=== PATIENT | female | born 1950 | race Caucasian/White ===

== ENCOUNTER 2024-06-08 09:55 | Emergency (ER) | payer MEDICARE ==
[~2024-06-08] VITALS: Ht 172.7 cm; Wt 56.7 kg
[~2024-06-08 09:55] MED LIST: CYMBALTA PO; METOPROLOL PO; SYNTHROID PO
[2024-06-08 09:59] VITALS: O2SAT 98
[2024-06-08 10:59] LABS: BASOPHILS # (AUTO) 0.2 K/UL (0.0-0.2); BASOPHILS % (AUTO) 4.4 % (0.0-2.0); EOSINOPHILS # (AUTO) 0.1 K/uL (0.0-0.7); EOSINOPHILS % (AUTO) 2.7 % (0.0-7.0); HEMATOCRIT 37.3 % (31.2-41.9); HEMOGLOBIN 12.3 g/dL (10.9-14.3); LYMPHOCYTES # (AUTO) 1.3 K/uL (0.8-4.8); MEAN CORPUSCULAR HEMOGLOBIN 31.2 uug (24.7-32.8); MEAN CORPUSCULAR HGB CONC 33 g/dL (32.3-35.6); MEAN CORPUSCULAR VOLUME 94.4 fL (75.5-95.3); MONOCYTES # (AUTO) 0.4 K/uL (0.1-1.30); MONOCYTES % (AUTO) 7.5 % (0.0-11.0); NEUTROPHILS # (AUTO) 3.1 K/uL (1.8-8.9); NEUTROPHILS % (AUTO) 60.4 % (38.5-71.5); PLATELET COUNT (AUTO) 206 K/uL (179-408); RED BLOOD CELL COUNT(AUTO) 3.95 MIL/uL (3.63-4.92); RED CELL DISTRIBUTION WIDTH 13.2 % (12.3-17.7); WHITE BLOOD COUNT (AUTO) 5.1 K/uL (3.8-11.8)
[2024-06-08 11:11] LABS: DIFFERENTIAL COMMENT 1
[2024-06-08 11:13] LABS: CALCIUM 8.9 mg/dL (8.5-10.1); CARBON DIOXIDE 28 mmol/L (21-32); CHLORIDE 105 mmol/L (98-107); CREATININE 1.1 mg/dL (0.6-1.3); GLUCOSE 100 mg/dL (74-106); POTASSIUM 5.6 mmol/L (3.5-5.1); SODIUM SERUM 141 mmol/L (136-145); UREA NITROGEN, BLOOD 40 mg/dL (7-18)
[2024-06-08 11:22] LABS: ALANINE AMINOTRANSFERASE 24 U/L (14-59); ALBUMIN 3.9 g/dL (3.4-5.0); ALKALINE PHOSPHATASE 53 U/L (50-136); ASPARTATE AMINOTRANSFERASE 34 U/L (15-37); BILIRUBIN,DIRECT 0.2 mg/dL (0.0-0.2); BILIRUBIN,TOTAL 0.6 mg/dL (0.2-1.0); TOTAL PROTEIN, SERUM 7.1 g/dL (6.4-8.2)
[2024-06-08] MEDS ORDERED: OXYC-128 PO (11:37)
== END 2024-06-08 11:48 | disposition home or self-care (01) ==
LOC: ER 09:55
DX: M54.17 Radiculopathy, lumbosacral region (principal); I10 Essential (primary) hypertension; Z79.891 Long term (current) use of opiate analgesic; Z79.899 Other long term (current) drug therapy
CPT/HCPCS: 36415; 72131; 72170; 84484; 85025; 85651; 85730; 86140; A4606; A4663

== ENCOUNTER 2024-12-02 02:47 | Emergency (ER) | payer MEDICARE ==
[~2024-12-02] VITALS: Ht 172.7 cm; Wt 58.1 kg
[~2024-12-02 02:47] MED LIST changes: +OXYC-128 PO
[2024-12-02] MEDS ORDERED: TDAP DIPH,PERTUSS,TET VAC/PF 0.5 ML DISP.SYRIN IM ONE (03:15)
[2024-12-02] MEDS: TDAP DIPH,PERTUSS,TET VAC/PF 0.5 ML DISP.SYRIN IM ONE (03:18)
[2024-12-02] MEDS ORDERED: LIDOCAINE 2%-EPI 1:100,000 20 ML VIAL ONE (03:29)
[2024-12-02] MEDS ORDERED: CEPH500C2 PO (04:23)
[2024-12-02] MEDS: LIDOCAINE 2%-EPI 1:100,000 20 ML VIAL IJ ONE (04:28)
[2024-12-02 04:32] VITALS: BP 130/83; O2SAT 100
== END 2024-12-02 04:33 | disposition home or self-care (01) ==
LOC: ER 03:17
DX: S01.81XA Laceration without foreign body of other part of head, initial encounter (principal); I11.9 Hypertensive heart disease without heart failure; Z88.7 Allergy status to serum and vaccine; W19.XXXA Unspecified fall, initial encounter; Y93.9 Activity, unspecified; Y92.9 Unspecified place or not applicable; Y99.8 Other external cause status
CPT/HCPCS: 70450; 70486; 90715; A4606; A4663

== ENCOUNTER 2025-04-07 23:21 | Emergency (ER) | payer MEDICARE, OTHER ==
[~2025-04-07] VITALS: Ht 172.7 cm; Wt 59.0 kg
[~2025-04-07 23:21] MED LIST changes: +CEPH500C2 PO
[2025-04-07] MEDS ORDERED: METO25TA6 PO (23:44)
[2025-04-08 00:35] LABS: BASOPHILS # (AUTO) 0.1 K/UL (0.0-0.2); BASOPHILS % (AUTO) 1.5 % (0.0-2.0); DIFFERENTIAL COMMENT 1; EOSINOPHILS # (AUTO) 0.2 K/uL (0.0-0.7); EOSINOPHILS % (AUTO) 5.1 % (0.0-7.0); HEMATOCRIT 36.9 % (31.2-41.9); HEMOGLOBIN 12.3 g/dL (10.9-14.3); LYMPHOCYTES # (AUTO) 1.1 K/uL (0.8-4.8); LYMPHOCYTES % (AUTO) 29.8 % (20.5-51.5); MEAN CORPUSCULAR HEMOGLOBIN 30.8 uug (24.7-32.8); MEAN CORPUSCULAR HGB CONC 34 g/dL (32.3-35.6); MEAN CORPUSCULAR VOLUME 92.2 fL (75.5-95.3); MONOCYTES # (AUTO) 0.4 K/uL (0.1-1.30); MONOCYTES % (AUTO) 10.9 % (0.0-11.0); NEUTROPHILS # (AUTO) 1.9 K/uL (1.8-8.9); NEUTROPHILS % (AUTO) 52.7 % (38.5-71.5); PLATELET COUNT (AUTO) 178 K/uL (179-408); RED CELL DISTRIBUTION WIDTH 13.1 % (12.3-17.7); WHITE BLOOD COUNT (AUTO) 3.5 K/uL (3.8-11.8)
[2025-04-08 00:39] LABS: CALCIUM 9.1 mg/dL (8.5-10.1); CARBON DIOXIDE 30 mmol/L (21-32); CHLORIDE 107 mmol/L (98-107); GLUCOSE 102 mg/dL (74-106); POTASSIUM 4.3 mmol/L (3.5-5.1); SODIUM SERUM 144 mmol/L (136-145); UREA NITROGEN, BLOOD 30 mg/dL (7-18)
[2025-04-08] MEDS ORDERED: GABA-532 PO (01:59)
[2025-04-08] MEDS ORDERED: HYDR-4209 PO (01:59)
[2025-04-08 02:06] VITALS: BP 110/62; O2SAT 97
[2025-04-08 02:12] LABS: THYROID STIMULATING HORMONE 2.784 mIU/mL (0.358-3.740)
== END 2025-04-08 02:07 | disposition home or self-care (01) ==
LOC: ER 23:25
DX: M79.661 Pain in right lower leg (principal); M79.2 Neuralgia and neuritis, unspecified; E03.9 Hypothyroidism, unspecified; E78.5 Hyperlipidemia, unspecified; F32.A Depression, unspecified; I10 Essential (primary) hypertension; Z79.899 Other long term (current) drug therapy; Z88.7 Allergy status to serum and vaccine
CPT/HCPCS: 36415; 73590; 83735; 84443; 85025; A4606; A4663